=== PATIENT | male | born 1980 | race African-American/Black ===

== ENCOUNTER 2017-02-04 17:45 | Emergency (ER) | payer SELFPAY ==
[~2017-02-04] VITALS: Ht 188 cm; Wt 80.0 kg
[~2017-02-04 17:45] MED LIST: CIPROFLOXACN500 MG PO; CLINDAMYCIN HC150 MG PO; FLEXERIL PO; LEVETIRACETAM500 MG PO; METHOCARBAMOL500 MG PO; NAPROSYN500 MG PO; NO; OXYCODONE HCL5 MG PO; ULTRAM50 MG PO
[2017-02-04 18:19] LABS: HEMATOCRIT 40.5 % (39.0-50.0); HEMOGLOBIN 13.6 g/dl (14.0-18.0); IMMATURE GRANULOCYTES 0.3 % (0.0-1.0); MEAN CELL VOLUME 88.8 fL CALC (80.0-100.0); MEAN CORPUSCULAR HGB 29.8 pG CALC (26.0-32.0); MEAN CORPUSCULAR HGB CONC 33.6 g/L CALC (32.0-36.0); NEUT# 7.16 thou/uL (1.82-7.42); RED BLOOD COUNT 4.56 mill/uL (4.70-6.10); RED CELL DISTRI WIDTH 13.1 % (11.5-15.5)
[2017-02-04 18:21] LABS: URINE BILIRUBIN - DIPSTICK NEGATIVE (NEGATIVE); URINE BLOOD DIPSTICK NEGATIVE (NEGATIVE); URINE CLARITY CLEAR; URINE COLOR YELLOW; URINE GLUCOSE - DIPSTICK NEGATIVE (NEGATIVE); URINE KETONE NEGATIVE (NEGATIVE); URINE LEUK ESTERASE NEGATIVE (NEGATIVE); URINE NITRITE - DIPSTICK NEGATIVE (Negative); URINE PH 5.5 (4.5-8.0); URINE PROTEIN - DIPSTICK TRACE mg/dL (NEG-TRACE); URINE SPECIFIC GRAVITY >=1.030; URINE UROBILINOGEN - DIPSTICK 0.2 E.U./dL (0.2)
[2017-02-04 18:26] LABS: BARBITURATES NEGATIVE (NEGATIVE); COCAINE NEGATIVE (NEGATIVE); METHADONE NEGATIVE (NEGATIVE); OXCYCODONE NEGATIVE (NEGATIVE); TETRAHYDROCANNABIONOL NEGATIVE (NEGATIVE); TRICYLIC ANTIDEPRESSANTS NEGATIVE (NEGATIVE)
[2017-02-04 18:33] LABS: ALBUMIN 4.6 g/dL (3.2-5.0); ALKALINE PHOSPHATASE 78 u/l (38-126); ANION GAP 16 (6-22 (CALC)); BILIRUBIN, TOTAL 0.3 mg/dL (0.0-1.4); BUN 18 mg/dL (9-20); BUN/CREATININE RATIO 17 (12-20 (CALC)); CALCIUM 9.3 mg/dL (8.4-10.2); CARBON DIOXIDE 26 mmol/l (22-30); CHLORIDE 106 mmol/l (95-108); CREATININE 1.1 mg/dL (0.7-1.3); ETHYL ALCOHOL 0 mg/dl (0-30); GFR > 60 ML/MIN (>=60 (CALC)); GFR FOR AFR.AMER. > 60 ML/MIN (>=60 (CALC)); GLUCOSE 117 mg/dL (75-110); POTASSIUM 4.3 mmol/l (3.5-5.1); SGOT/AST 30 u/l (17-59); SGPT/ALT 47 u/l (21-72); SODIUM 143 mmol/l (137-146); TOTAL PROTEIN 7.6 g/dL (6.3-8.2)
[2017-02-04 18:45] LABS: MYOGLOBIN 86 ng/mL (0 - 121)
[2017-02-04 20:15] VITALS: BP 110/74
== END 2017-02-04 20:55 | disposition home or self-care (01) | DRG 948 ==
LOC: ED 17:45
PROVIDERS: Emergency Medicine
DX: R53.1 Weakness (principal)

== ENCOUNTER 2017-11-24 23:42 | Emergency (ER) | payer SELFPAY ==
[~2017-11-24] VITALS: Ht 188 cm; Wt 81.8 kg
[2017-11-25 00:57] LABS: URINE BILIRUBIN - DIPSTICK NEGATIVE (NEGATIVE); URINE BLOOD DIPSTICK TRACE-LYSED (NEGATIVE); URINE CLARITY SL CLOUDY; URINE COLOR YELLOW; URINE GLUCOSE - DIPSTICK NEGATIVE (NEGATIVE); URINE KETONE TRACE mg/dL (NEGATIVE); URINE LEUK ESTERASE NEGATIVE (NEGATIVE); URINE NITRITE - DIPSTICK NEGATIVE (Negative); URINE PROTEIN - DIPSTICK TRACE mg/dL (NEG-TRACE); URINE SPECIFIC GRAVITY 1.025; URINE UROBILINOGEN - DIPSTICK 0.2 E.U./dL (0.2)
[2017-11-25 00:57] LABS: HEMATOCRIT 52.4 % (39.0-50.0); HEMOGLOBIN 17.1 g/dl (14.0-18.0); IMMATURE GRANULOCYTES 0.3 % (0.0-1.0); MEAN CORPUSCULAR HGB 29.4 pG CALC (26.0-32.0); MEAN CORPUSCULAR HGB CONC 32.6 g/L CALC (32.0-36.0); NEUT# 5.95 thou/uL (1.82-7.42); RED BLOOD COUNT 5.82 mill/uL (4.70-6.10); RED CELL DISTRI WIDTH 14.5 % (11.5-15.5)
[2017-11-25 01:02] LABS: BARBITURATES POSITIVE (NEGATIVE); COCAINE NEGATIVE (NEGATIVE); METHADONE NEGATIVE (NEGATIVE); OXCYCODONE NEGATIVE (NEGATIVE); TETRAHYDROCANNABIONOL POSITIVE (NEGATIVE); TRICYLIC ANTIDEPRESSANTS NEGATIVE (NEGATIVE)
[2017-11-25 01:06] LABS: ALBUMIN 5.4 g/dL (3.2-5.0); ANION GAP 23 (6-22 (CALC)); BILIRUBIN, TOTAL 0.4 mg/dL (0.0-1.4); BUN 10 mg/dL (9-20); BUN/CREATININE RATIO 10 (12-20 (CALC)); CARBON DIOXIDE 24 mmol/l (22-30); CHLORIDE 104 mmol/l (95-108); GFR > 60 ML/MIN (>=60 (CALC)); GFR FOR AFR.AMER. > 60 ML/MIN (>=60 (CALC)); POTASSIUM 3.8 mmol/l (3.5-5.1); SGOT/AST 28 u/l (17-59); SGPT/ALT 42 u/l (21-72); SODIUM 147 mmol/l (137-146)
[2017-11-25 01:07] LABS: ALKALINE PHOSPHATASE 125 u/l (38-126); ETHYL ALCOHOL 96 mg/dl (0-30); TOTAL PROTEIN 9.8 g/dL (6.3-8.2)
[2017-11-25 02:17] VITALS: BP 148/93
== END 2017-11-25 02:18 | DRG 897 ==
LOC: ED 23:42
PROVIDERS: Emergency Medicine
DX: F10.120 Alcohol abuse with intoxication, uncomplicated (principal); F12.10 Cannabis abuse, uncomplicated; R44.0 Auditory hallucinations; Y90.4 Blood alcohol level of 80-99 mg/100 ml; R41.82 Altered mental status, unspecified
CPT/HCPCS: S0166

== ENCOUNTER 2022-02-07 09:47 | Emergency (ER) | payer SELFPAY ==
[~2022-02-07] VITALS: Ht 193 cm; Wt 84.1 kg
[2022-02-07 10:28] VITALS: BP 122/87
[2022-02-07 10:45] VITALS: BP 117/70
[2022-02-07 11:00] VITALS: BP 109/75
[2022-02-07 11:04] VITALS: BP 109/75
== END 2022-02-07 11:11 | disposition home or self-care (01) | DRG 563 ==
LOC: ED 09:47
DX: S53.402A Unspecified sprain of left elbow, initial encounter (principal); Y08.02XA Assault by strike by baseball bat, initial encounter; Y92.009 Unspecified place in unspecified non-institutional (private) residence as the place of occurrence of the external cause

== ENCOUNTER 2022-11-06 09:45 | Emergency (ER) | payer MEDICAID ==
[~2022-11-06] VITALS: Ht 193 cm; Wt 86.4 kg
[2022-11-06 09:51] VITALS: BP 138/81
[2022-11-06 10:00] VITALS: BP 127/89
[2022-11-06 10:03] VITALS: BP 127/89
== END 2022-11-06 10:18 | disposition left against medical advice (07) ==
LOC: ED 09:45
DX: R56.9 Unspecified convulsions (principal); F17.200 Nicotine dependence, unspecified, uncomplicated; Z53.29 Procedure and treatment not carried out because of patient's decision for other reasons